=== PATIENT | female | born 1995 | race Two or more races ===

== ENCOUNTER 2018-11-18 11:12 | Day surgery (SDC) | payer OTHER ==
[~2018-11-18 11:12] MED LIST: MACROBID 100 M100 MG PO; PRENATAL 19 TA1 EAC1 PO; ZANTAC300 MG PO; ZOFRAN4 MG PO
== END 2018-11-18 16:35 | disposition home or self-care (01) ==
LOC: AMB-ENDOS 11:12
DX: D13.1 Benign neoplasm of stomach (principal)

== ENCOUNTER 2018-12-14 13:17 | Emergency (ER) | payer OTHER ==
[~2018-12-14] VITALS: Ht 157.5 cm; Wt 111.6 kg
[2018-12-14] MEDS ORDERED: TUSSI PRES-B L120 M1 PO (13:58)
[2018-12-14] MEDS ORDERED: ZITHROMAX TRI-500 MG PO (13:58)
[2018-12-14] MEDS ORDERED: TRAMADOL HCL50 MG PO (15:31)
== END 2018-12-14 15:41 | disposition home or self-care (01) ==
LOC: ER 13:17
DX: M25.522 Pain in left elbow (principal); Z48.02 Encounter for removal of sutures

== ENCOUNTER 2023-12-20 11:52 | Emergency (ER) | payer OTHER ==
[~2023-12-20] VITALS: Ht 162.6 cm; Wt 85.7 kg
[~2023-12-20 11:52] MED LIST changes: +TRAMADOL HCL50 MG PO; +TUSSI PRES-B L120 M1 PO; +ZITHROMAX TRI-500 MG PO
== END 2023-12-20 14:55 | disposition home or self-care (01) ==
LOC: ER 11:52
DX: Z32.01 Encounter for pregnancy test, result positive (principal)